=== PATIENT | female | born 1950 | race Caucasian/White ===

== ENCOUNTER 2022-11-09 19:03 | Inpatient (IN) | payer MEDICARE, OTHER ==
[~2022-11-09] VITALS: Ht 157.5 cm; Wt 41.8 kg
[2022-11-09] MEDS ORDERED: ATOR80TA PO (19:56)
[2022-11-09] MEDS ORDERED: INSU100V7 SQ (19:56)
[2022-11-09] MEDS ORDERED: ASCO-375 PO (19:56)
[2022-11-09] MEDS ORDERED: ISOS30TA9 PO (19:56)
[2022-11-09] MEDS ORDERED: MIRT-93 PO (19:56)
[2022-11-09] MEDS ORDERED: NITR0.4T SL (19:56)
[2022-11-09] MEDS ORDERED: CLOP75TA33 PO (19:56)
[2022-11-09] MEDS ORDERED: ASPI81TA31 PO (19:56)
[2022-11-09] MEDS ORDERED: LORA-258 PO (19:56)
[2022-11-09] MEDS ORDERED: CRAN450T9 PO (19:56)
[2022-11-09] MEDS ORDERED: TRAM50TA2 PO (19:56)
[2022-11-09] MEDS ORDERED: CLOP75TA15 PO (19:56)
[2022-11-09] MEDS ORDERED: SENN-261 PO (19:56)
[2022-11-09] MEDS ORDERED: EMPA25TA PO (19:56)
[2022-11-09] MEDS ORDERED: MULT-213 PO (19:56)
[2022-11-09] MEDS ORDERED: ALBU8.5H8 IH (19:56)
[2022-11-09] MEDS ORDERED: METO-356 PO (19:56)
[2022-11-09] MEDS ORDERED: MAGN400O6 PO (19:56)
[2022-11-09] MEDS ORDERED: PANT40TA49 PO (19:56)
[2022-11-09] MEDS ORDERED: FOLI1TAB94 PO (19:56)
[2022-11-09] MEDS ORDERED: FURO20TA4 PO (19:56)
[2022-11-09] MEDS ORDERED: MONT10TA33 PO (19:56)
[2022-11-09] MEDS ORDERED: FERR325T28 PO (19:56)
[2022-11-09] MEDS ORDERED: LOSA25TA27 PO (19:56)
--- NOTE | 2022-11-09 19:57 | NUR ---
Patient ambulated to the bathroom standby assist. Addendum: 11/10/22 at 0128 by SKYLAR Amendment undone in ED - 11/10/22 at 0129 by SKYLAR Patient received by Pantera WATSON and rAiel WATSON.
--- NOTE | 2022-11-09 19:58 | NUR ---
Patient had accident in bed. Voided large amount of urine. Unable to collect UA at this time.
[2022-11-09 20:15] LABS: HEMATOCRIT 32.3 % (31.2-41.9); MEAN CORPUSCULAR HEMOGLOBIN 23.8 uug (24.7-32.8); MEAN CORPUSCULAR VOLUME 77.4 fL (75.5-95.3); PLATELET COUNT (AUTO) 363 K/uL (179-408)
[2022-11-09 20:28] LABS: CARBON DIOXIDE 29 mmol/L (21-32); CHLORIDE 100 mmol/L (98-107); CREATININE 1.2 mg/dL (0.6-1.3); GLUCOSE 298 mg/dL (74-106); POTASSIUM 3.1 mmol/L (3.5-5.1); UREA NITROGEN, BLOOD 12 mg/dL (7-18)
[2022-11-09 20:34] LABS: ETHANOL < 3 MG/DL (0-0)
[2022-11-09 20:48] LABS: ALANINE AMINOTRANSFERASE 15 U/L (14-59); ALKALINE PHOSPHATASE 126 U/L (50-136); ASPARTATE AMINOTRANSFERASE 16 U/L (15-37); BILIRUBIN,DIRECT 0.1 mg/dL (0.0-0.2); BILIRUBIN,TOTAL 0.5 mg/dL (0.2-1.0); TOTAL PROTEIN, SERUM 8.5 g/dL (6.4-8.2)
[2022-11-09 20:50] LABS: ACETAMINOPHEN < 2.0 ug/mL (10-30)
[2022-11-09] MEDS ORDERED: LORAZEPAM 0.5 MG TABLET PO ONE (22:45)
[2022-11-09] MEDS ORDERED: LORAZEPAM 0.5 MG TABLET ONE (23:01)
--- NOTE | 2022-11-09 23:05 | NUR ---
Dr. Walker ordered Ativan 0.5mg for confusion.
--- NOTE | 2022-11-09 23:10 | NUR ---
Patient got up out of bed unassisted, wondering around nursing station. Patient reoriented back into bed. Patient had pulled out IV.
--- NOTE | 2022-11-09 23:15 | NUR ---
Patient taken to the bathroom. Patient dumped urine into toilet. Unable to collect UA.
--- NOTE | 2022-11-10 00:05 | NUR ---
Dr. Walker on panel call with Derrick MEZA. Pending admission.
--- NOTE | 2022-11-10 00:09 | NUR ---
Patient has been admitted to third floor TELE Room 309
--- NOTE | 2022-11-10 00:10 | NUR ---
Called third floor to give report. RN unavaliable at this time. Waiting for call back.
--- NOTE | 2022-11-10 00:11 | NUR ---
Patient sleeping, resting comfortably in bed. No signs of distress.
--- NOTE | 2022-11-10 00:15 | NUR ---
Called Wilmar Reynolds (son) to notify of patients admission. No answer, left a voicemail.
--- NOTE | 2022-11-10 00:22 | NUR ---
Replaced IV: 20g to right AC
--- NOTE | 2022-11-10 00:37 | NUR ---
Gave report to Pantera RN in third floor.
--- NOTE | 2022-11-10 01:27 | NUR ---
Patient taken to third floor room 309 via matthewriki with personal belongings. Patient in stable condition no signs of distress. Addendum: 11/10/22 at 0129 by SKYLAR Patient received by Pantera WATSON and Ariel WATSON.
[2022-11-10 01:30] VITALS: BP 145/60
[2022-11-10] MEDS ORDERED: ONDANSETRON 4 MG/2 ML VIAL IV PRN (01:30)
[2022-11-10] MEDS ORDERED: ACETAMINOPHEN 325 MG TABLET PO PRN (01:30)
[2022-11-10] MEDS ORDERED: DEXTROSE 50% 50 ML DISP.SYRIN IV PRN (01:30)
[2022-11-10] MEDS ORDERED: MAGNESIUM HYDROXIDE 30 ML LIQUID UDC PO PRN ×2 (01:30)
[2022-11-10] MEDS ORDERED: REMEDY ESSENTIAL ZINC PASTE 113 GM TP PRN (01:30)
--- NOTE | 2022-11-10 01:30 | NUR ---
resident admitted from er in stable condition. no sob or resp distress noted. patient is ambulatory, moved to bed and made her comfortable. all needs met and attended. patient speaks hungarian. son Wilmar called and udated about diet order and was appriciative for care provided to her mother. per son will visit in am. v/s wnl. call light in reach and functional.
[2022-11-10 04:00] VITALS: BP 120/78
[2022-11-10] MEDS: BLOOD SUGAR DIAGNOSTIC 1 EACH STRIP VI SCH ×4 (06:35→20:22)
[2022-11-10 06:55] LABS: HEMATOCRIT 31.4 % (31.2-41.9); MEAN CORPUSCULAR HEMOGLOBIN 23.5 uug (24.7-32.8); MEAN CORPUSCULAR VOLUME 77.5 fL (75.5-95.3); PLATELET COUNT (AUTO) 283 K/uL (179-408)
[2022-11-10 07:21] LABS: CREATININE 0.9 mg/dL (0.6-1.3); MAGNESIUM 2.1 mg/dL (1.8-2.4); PHOSPHOROUS 4.4 mg/dL (2.5-4.9); POTASSIUM 2.9 mmol/L (3.5-5.1); THYROID STIMULATING HORMONE 0.871 mIU/mL (0.358-3.740)
[2022-11-10] MEDS: INSULIN REGULAR, HUMAN 300 UNIT/3 ML VIAL SQ PRN ×4 (08:00→20:16)
[2022-11-10] MEDS: MULTIVITAMINS,THERAPEUTIC TABLET PO SCH (08:45)
[2022-11-10] MEDS: METOPROLOL SUCCINATE XL 25 MG TAB.SR.24H PO SCH ×2 (08:46→20:22)
[2022-11-10] MEDS: ASCORBIC ACID 500 MG TABLET PO SCH (08:47)
[2022-11-10] MEDS: FERROUS SULFATE 325 MG TABEC PO SCH (08:47)
[2022-11-10] MEDS: FUROSEMIDE 20 MG TABLET PO SCH (08:47)
[2022-11-10] MEDS: ASPIRIN 81 MG TAB.CHEW PO SCH (08:47)
[2022-11-10] MEDS: ISOSORBIDE DINITRATE 10 MG TABLET PO SCH (08:47)
[2022-11-10] MEDS: LOSARTAN POTASSIUM 25 MG TABLET PO SCH (08:47)
[2022-11-10] MEDS: FOLIC ACID 1 MG TABLET PO SCH (08:47)
[2022-11-10] MEDS ORDERED: Medication Not On Formulary EA (Cranberry Fruit (Cranberry) 450 MG) PO SCH (09:00)
--- NOTE | 2022-11-10 09:27 | NUR ---
PATIENT SEEN BY THE PHYSICAL THERAPY REQUIRING MAX ASSIST ENDURANCE WAS POOR AT THIS TIME
[2022-11-10] MEDS: CLOPIDOGREL 75 MG TABLET PO SCH (09:51)
--- NOTE | 2022-11-10 09:52 | NUR ---
Rcvd pt. in bed sleeping with bilateral wrist soft restraint. Skin inspected to check for circulation. Pt. stable no SOB at this time. Pt. in NSR in tele.
[2022-11-10] MEDS ORDERED: POTASSIUM CHLORIDE 20 MEQ TAB.PRT.SR PO ONE ×2 (11:00→13:00)
[2022-11-10 12:00] VITALS: BP 83/37
--- NOTE | 2022-11-10 12:20 | NUR ---
PATIENTS BLOOD PRESSURE AT THIS TIME IS 83/41 CHECKED A FEW TIMES TO ENSURE ACCURACY PATINES LEGS UP AND HEAD DOWN FOR A WHILE SHE IS ASSYMPTOMATIC REMAINS CONFUSED BUT AWAKE CALLED DR HOOVER AND NOTIFIED HIM ABOUT THE BLOOD PRESSURE AND ALSO THAT PATIENTS SON WAS HERE AND WANTED DR RIOS TO CALL HIM HIS MOTHER CONTINUES TO COMPLAIN OF PAIN IN THE BACK OF HER HEAD AND GETTING MORE CONFUSED.LEFT HIM A MESSAGE.
--- NOTE | 2022-11-10 12:45 | NUR ---
DR RIOS HERE AND SEEN PATIENT WITH NO NEW ORDERS AT THIS TIME.PATIENT IS RESTING IN BED EATING HER DINNER BEING FED BY HER ASSIGNED SUPERVISOR OF COMMUNICATIONS AT THIS TIME.
--- NOTE | 2022-11-10 13:30 | NUR ---
NEW ORDER FOR MRI OF THE BRAIN RECEIVED FROM DR CORTES SO I CALLED THE DOCTOR AND INFORMED HIM THAT PATIENT IS VERY CONFUSED AGITATED ON RESTRAINTS FOR SAFETY AND HE STATED THAT HE WILL BE HERE SOON.
[2022-11-10 16:00] VITALS: BP 94/45
--- NOTE | 2022-11-10 16:31 | NUR ---
DR CORTES HERE SEEN PATIENT SPOKE WITH PATIENTS SON PEEP AND EXPLAINED TO HIM THE PLAN OF CARE WITH NEW ORDERS AND NOTED.
--- NOTE | 2022-11-10 18:11 | NUR ---
Unable to complete CT C-spine due to patient condition. Patient is yelling in a different language and swinging hands. Not able to aquire C spine
--- NOTE | 2022-11-10 18:29 | NUR ---
PATIENT PICKED UP BY BED TO RADIOLOGY DEPT FOR CT CERVICAL SPINE ORDERED.
--- NOTE | 2022-11-10 18:54 | NUR ---
PATIENT STRAIGHT CATH FOR URINE ORDERED VERY AGGRESSIVE KICKING GRABBING DESPITE TARIK WRIST RESTRAINTS VERY CONFUSED YELLING AND VERY COMBATIVE REQUIRED 3 PEOPLE TO BE ABLE TO CATH HER.
[2022-11-10 19:49] LABS: *BILIRUBIN,URIN NEGATIVE (NEGATIVE); *BLOOD, URINE NEGATIVE (NEGATIVE); *CLARITY,URINE CLEAR (CLEAR); *COLOR,URINE YELLOW (YELLOW); *KETONES,URINE NEGATIVE (NEGATIVE); *UROBILINOGEN,URINE 0.2 E.U./dl (NORMAL); LEUKOCYTE ESTERASE ,URINE NEGATIVE (NEGATIVE); NITRITE, URINE NEGATIVE (NEGATIVE); PH,URINE 5.5 (5.0-8.0)
[2022-11-10 19:50] LABS: UGLUCOSE 2+ (NEGATIVE)
[2022-11-10 20:00] VITALS: BP 122/65
[2022-11-10] MEDS: MONTELUKAST SODIUM 10 MG TABLET PO SCH (20:16)
[2022-11-10] MEDS: ZOLPIDEM 5 MG TABLET PO PRN (20:17)
[2022-11-10] MEDS: NORTRIPTYLINE HCL 10 MG CAPSULE PO SCH (20:27)
[2022-11-10] MEDS ORDERED: MIRTAZAPINE 15 MG TABLET PO SCH (21:00)
[2022-11-10 23:34] VITALS: BP 125/60
[2022-11-11 03:58] VITALS: BP 132/61
[2022-11-11] MEDS: BLOOD SUGAR DIAGNOSTIC 1 EACH STRIP VI SCH ×4 (06:29→21:15)
[2022-11-11 07:29] LABS: HEMATOCRIT 30.2 % (31.2-41.9); MEAN CORPUSCULAR HEMOGLOBIN 23.9 uug (24.7-32.8); MEAN CORPUSCULAR VOLUME 78.1 fL (75.5-95.3); PLATELET COUNT (AUTO) 296 K/uL (179-408)
[2022-11-11 07:56] LABS: MAGNESIUM 2.2 mg/dL (1.8-2.4); PHOSPHOROUS 4.2 mg/dL (2.5-4.9); POTASSIUM 4.2 mmol/L (3.5-5.1)
--- NOTE | 2022-11-11 08:00 | NUR ---
PATIENT REFUSED 0800 VITALS SIGNS WAS AGITATED.
[2022-11-11] MEDS: ISOSORBIDE DINITRATE 10 MG TABLET PO SCH (09:38)
[2022-11-11] MEDS: ASPIRIN 81 MG TAB.CHEW PO SCH (09:39)
[2022-11-11] MEDS: METOPROLOL SUCCINATE XL 25 MG TAB.SR.24H PO SCH ×2 (09:39→20:52)
[2022-11-11] MEDS: MULTIVITAMINS,THERAPEUTIC TABLET PO SCH (09:39)
[2022-11-11] MEDS: LOSARTAN POTASSIUM 25 MG TABLET PO SCH (09:40)
[2022-11-11] MEDS: FOLIC ACID 1 MG TABLET PO SCH (09:40)
[2022-11-11] MEDS: FERROUS SULFATE 325 MG TABEC PO SCH (09:40)
[2022-11-11] MEDS: ASCORBIC ACID 500 MG TABLET PO SCH (09:41)
[2022-11-11] MEDS: CLOPIDOGREL 75 MG TABLET PO SCH (09:41)
[2022-11-11] MEDS: FUROSEMIDE 20 MG TABLET PO SCH (09:42)
[2022-11-11 12:00] VITALS: BP 96/44
[2022-11-11] MEDS ORDERED: LORAZEPAM 2 MG/1 ML VIAL IV ONE (13:30)
--- NOTE | 2022-11-11 13:40 | NUR ---
AMBULANCE CAME TO TAKE PATIENT TO MRI BUT PATIENT HAD SOIL DIAPER PT VERY COMBATIVE CALLED DR RIOS HE ORDERED ATIVAN 1 MG X 1 DOSE HAD TO GET THREE PEOPLE TO ASSIST AND GAVE ATIVAN 1 MG IVP PT CALM CLEANED APPLIED NEW GOWN ALONG DIAPER. PATIENT TAKEN TO MRI AT [facility].
--- NOTE | 2022-11-11 14:58 | NUR ---
UNABLE TO DO MRI BRAIN VERY UNSTABLE , MOVING AROUND , CHARGE NURSE NOTIFIED PER SECTION LEADER SCREEN PRINTING MY.
--- NOTE | 2022-11-11 15:30 | NUR ---
PATIENT CAME BACK FROM MRI WASN'T ABLE TO COMPLETE IT BECAUSE BECAME RESTLESS AND ONCE ABLE TO CALM PT SHE HEARD THE NOISE WOKE UP WILL ENDORSE TO . PT NOW SITTING IN [facility] CALM NO SIGNS OF DISTRESS NOTED. ATTEMPED TO PUT MONITOR ON BUT PT BECAME AGGRESSIVE WILL ENDORSE TO NURSE. Addendum: 11/11/22 at 1552 by REGISTRY [facility] INPATIENT RN4 RN PT IS CLOSE BY NURSES STATION MONITORING PATIENT EVERY HOUR.
[2022-11-11 16:00] VITALS: BP 131/68
[2022-11-11] MEDS: HYDROCODONE/APAP 5-325MG TABLET PO PRN (19:10)
[2022-11-11] MEDS: INSULIN REGULAR, HUMAN 300 UNIT/3 ML VIAL SQ PRN ×2 (19:19→21:20)
--- NOTE | 2022-11-11 19:45 | NUR ---
Received Pt from Day shift. Pt is A&Ox1 and seems agitated at staff. Pt in restraints and in gerichair. Pt on Rm Air. SR-ST on tele. Safety measures in place. Will continue to monitor.
[2022-11-11 20:00] VITALS: BP 125/75
[2022-11-11] MEDS: NORTRIPTYLINE HCL 10 MG CAPSULE PO SCH (20:51)
[2022-11-11] MEDS: MONTELUKAST SODIUM 10 MG TABLET PO SCH (20:51)
[2022-11-12] VITALS: BP 111/59
[2022-11-12] MEDS: ZOLPIDEM 5 MG TABLET PO PRN ×2 (01:12→21:41)
[2022-11-12 03:49] VITALS: BP 125/47
[2022-11-12] MEDS: BLOOD SUGAR DIAGNOSTIC 1 EACH STRIP VI SCH ×4 (07:01→21:58)
--- NOTE | 2022-11-12 07:04 | NUR ---
End of shift Note: Pt is A&Ox1 and seems agitated at staff. Pt in restraints and in gerichair. Pt on Rm Air. SR-ST on tele. Safety measures in place. Will continue to monitor.
[2022-11-12 07:33] LABS: MEAN CORPUSCULAR HEMOGLOBIN 23.6 uug (24.7-32.8); MEAN CORPUSCULAR VOLUME 77.3 fL (75.5-95.3); PLATELET COUNT (AUTO) 311 K/uL (179-408)
[2022-11-12 07:46] LABS: MAGNESIUM 2.2 mg/dL (1.8-2.4); PHOSPHOROUS 4.3 mg/dL (2.5-4.9); POTASSIUM 3.5 mmol/L (3.5-5.1)
[2022-11-12] MEDS: LOSARTAN POTASSIUM 25 MG TABLET PO SCH (09:58)
[2022-11-12] MEDS: ASPIRIN 81 MG TAB.CHEW PO SCH (09:58)
[2022-11-12] MEDS: METOPROLOL SUCCINATE XL 25 MG TAB.SR.24H PO SCH ×2 (09:59→21:40)
[2022-11-12] MEDS: FERROUS SULFATE 325 MG TABEC PO SCH (09:59)
[2022-11-12] MEDS: FOLIC ACID 1 MG TABLET PO SCH (09:59)
[2022-11-12] MEDS: CLOPIDOGREL 75 MG TABLET PO SCH (10:00)
[2022-11-12] MEDS: MULTIVITAMINS,THERAPEUTIC TABLET PO SCH (10:00)
[2022-11-12] MEDS: ASCORBIC ACID 500 MG TABLET PO SCH (10:00)
[2022-11-12] MEDS: FUROSEMIDE 20 MG TABLET PO SCH (11:35)
[2022-11-12] MEDS: ISOSORBIDE DINITRATE 10 MG TABLET PO SCH (11:35)
[2022-11-12 12:00] VITALS: BP 98/47
[2022-11-12] MEDS: INSULIN REGULAR, HUMAN 300 UNIT/3 ML VIAL SQ PRN ×3 (12:13→21:59)
[2022-11-12 15:52] VITALS: BP 142/71
[2022-11-12 16:32] LABS: EOSINOPHILS % (MANUAL) 2 % (0-8); LYMPHOCYTES % (MANUAL) 7 % (20-40); MONOCYTES % (MANUAL) 4 % (2-10); NEUTROPHILS % (MANUAL) 87 % (42-75)
--- NOTE | 2022-11-12 17:24 | NUR ---
Tele monitor leads on several occasion reapplied by staff but patient constantly manage to remove her hands mittens, IV line and Tele monitor. Patient remains with heart rates from 100-115. At this time Dr Posada made aware okay order for bilateral wrist restraints for patient safety.
[2022-11-12] MEDS: VANCOMYCIN FOR PO/GT/NG USE PO SCH ×2 (17:56→23:13)
--- NOTE | 2022-11-12 18:39 | NUR ---
Spoke with patient's son Wilmar about doctor Posada orders which require sign consent from son due to patient cognitive status. Mr Wilmar requests for Dr Posada to explain all diagnostic tests ordered including MRI that Dr Posada previously mentioned to him that was not part of the new orders.
[2022-11-12] MEDS: NORTRIPTYLINE HCL 10 MG CAPSULE PO SCH (21:40)
[2022-11-12] MEDS: MONTELUKAST SODIUM 10 MG TABLET PO SCH (21:40)
--- NOTE | 2022-11-12 23:00 | NUR ---
Pt has shellfish allergy and informed Dr Posada regarding CTA chest with contrast; Dr Posada changed order to CT Chest without contrast ; pt went for CT and back to room.
[2022-11-13 00:26] LABS: *BILIRUBIN,URIN NEGATIVE (NEGATIVE); *BLOOD, URINE NEGATIVE (NEGATIVE); *CLARITY,URINE SLIGHTLY CLOUDY (CLEAR); *COLOR,URINE YELLOW (YELLOW); *KETONES,URINE NEGATIVE (NEGATIVE); *UROBILINOGEN,URINE 0.2 E.U./dl (NORMAL); LEUKOCYTE ESTERASE ,URINE 1+ (NEGATIVE); NITRITE, URINE POSITIVE (NEGATIVE); UGLUCOSE NEGATIVE (NEGATIVE)
[2022-11-13 01:10] LABS: RBC,URINE NONE SEEN /HPF (0-3)
[2022-11-13 01:11] LABS: BACTERIA,URINE MANY /HPF (NONE SEEN); SQUAMOUS EPITHELIAL CELL,UR FEW /HPF (NONE SEEN)
[2022-11-13] MEDS: VANCOMYCIN FOR PO/GT/NG USE PO SCH ×3 (06:46→17:08)
[2022-11-13] MEDS: BLOOD SUGAR DIAGNOSTIC 1 EACH STRIP VI SCH ×4 (06:47→21:33)
[2022-11-13 06:54] LABS: HEMATOCRIT 29.5 % (31.2-41.9); MEAN CORPUSCULAR VOLUME 77.7 fL (75.5-95.3); PLATELET COUNT (AUTO) 272 K/uL (179-408)
[2022-11-13 07:23] LABS: CREATININE 1.1 mg/dL (0.6-1.3); MAGNESIUM 2.3 mg/dL (1.8-2.4); PHOSPHOROUS 4.3 mg/dL (2.5-4.9); POTASSIUM 3.6 mmol/L (3.5-5.1)
[2022-11-13] MEDS: INSULIN REGULAR, HUMAN 300 UNIT/3 ML VIAL SQ PRN ×2 (07:57→12:45)
--- NOTE | 2022-11-13 08:00 | NUR ---
Report received from Day shift RN. PT Awake alert and confused. PT very combative. Pt ambulates all around would not sit down. Pt does not listen and patient is able to come out of restraints. Pt has no IV access. No signs of shortness of breath noted. No complaint of pain. Vital signs stable. No acute distress noted.
[2022-11-13 08:41] VITALS: BP 141/63
[2022-11-13] MEDS: ASPIRIN 81 MG TAB.CHEW PO SCH (09:32)
[2022-11-13] MEDS: FERROUS SULFATE 325 MG TABEC PO SCH (09:32)
[2022-11-13] MEDS: FOLIC ACID 1 MG TABLET PO SCH (09:32)
[2022-11-13] MEDS: ASCORBIC ACID 500 MG TABLET PO SCH (09:33)
[2022-11-13] MEDS: CLOPIDOGREL 75 MG TABLET PO SCH (09:33)
[2022-11-13] MEDS: MULTIVITAMINS,THERAPEUTIC TABLET PO SCH (09:33)
[2022-11-13] MEDS: METOPROLOL SUCCINATE XL 25 MG TAB.SR.24H PO SCH ×2 (09:33→22:01)
--- NOTE | 2022-11-13 09:47 | NUR ---
Called pharmacy for Isordil, will give when it is delivered.
[2022-11-13] MEDS: ISOSORBIDE DINITRATE 10 MG TABLET PO SCH (09:54)
--- NOTE | 2022-11-13 11:14 | NUR ---
POSITIVE FOR C-DIFF: Jennifer Bailey from [facility] called to inform us that this pt is positive for C. Diff. Notified all staff on floor, put up an isolation sign and closed the door. Spoke to Phyllis on 3rd floor who said she will order the isolation cart to be delivered. Addendum: 11/13/22 at 1139 by LATHA PRIEST RN Dr Albino nash at 11:21am. All common surfaces wiped down with bleach/orange top wipes.
[2022-11-13 12:00] VITALS: BP 108/60
--- NOTE | 2022-11-13 12:00 | NUR ---
Pt reassessed. Patient pull out of restraint. meds given. patient still remain agitated and angry. MD aware. IV inserted patient pull out IV. Patient continue to be agitated and confused. Will continue to monitor.
[2022-11-13] MEDS: MEROPENEM 1 G in IV NORMAL SALINE 100 ML IV SCH (13:31)
[2022-11-13 16:15] VITALS: BP 134/68
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
[2022-11-13] MEDS ORDERED: LORAZEPAM 2 MG/1 ML VIAL IV PRN (19:00)
[2022-11-13] MEDS ORDERED: OLANZAPINE 10 MG VIAL IM ONE (20:15)
[2022-11-13] MEDS: NORTRIPTYLINE HCL 10 MG CAPSULE PO SCH (21:52)
[2022-11-13] MEDS: MONTELUKAST SODIUM 10 MG TABLET PO SCH (21:57)
--- NOTE | 2022-11-14 | NUR ---
Pt refused Insulin
[2022-11-14] MEDS: VANCOMYCIN FOR PO/GT/NG USE PO SCH ×5 (00:46→23:55)
[2022-11-14] MEDS: MEROPENEM 1 G in IV NORMAL SALINE 100 ML IV SCH ×2 (01:31→12:07)
--- NOTE | 2022-11-14 04:00 | NUR ---
Pt reassessed. Pt asleep. No signs of shortness of breath. restrain intact and patent. Will continue to monitor.
[2022-11-14] MEDS: BLOOD SUGAR DIAGNOSTIC 1 EACH STRIP VI SCH ×3 (07:30→15:50)
--- NOTE | 2022-11-14 07:30 | NUR ---
Pt refused insulin
--- NOTE | 2022-11-14 07:30 | NUR ---
Pt reassessed. Pt awake pulled out IV and monitor. Blood all over floor. Pt is being very combative and yelling. Bath and AM care given. No signs of shortness of breath or acute distress noted. Nursing and drying supervisor cooking casing visited. Pt transfer to room 317. Report given to receiving nurse judy. Pt in stable condition.
--- NOTE | 2022-11-14 09:00 | NUR ---
Received the pt. from the second floor and report received by Janneth. Pt. is alert and oriented x2. Not able to speak Kyrgyz. Ambulatory. Removes Iv lines. Noted episodes of agitation and aggression. Pt. has order for restrain but removes it easy. No s/s pain noted. Will keep monitoring the patient.
[2022-11-14] MEDS: FERROUS SULFATE 325 MG TABEC PO SCH (09:45)
[2022-11-14] MEDS: FOLIC ACID 1 MG TABLET PO SCH (09:45)
[2022-11-14] MEDS: ASCORBIC ACID 500 MG TABLET PO SCH (09:46)
[2022-11-14] MEDS: MULTIVITAMINS,THERAPEUTIC TABLET PO SCH (09:46)
[2022-11-14] MEDS: ASPIRIN 81 MG TAB.CHEW PO SCH (09:46)
[2022-11-14] MEDS: ISOSORBIDE DINITRATE 10 MG TABLET PO SCH (09:46)
[2022-11-14] MEDS: METOPROLOL SUCCINATE XL 25 MG TAB.SR.24H PO SCH ×2 (09:50→21:03)
[2022-11-14] MEDS: CLOPIDOGREL 75 MG TABLET PO SCH (09:57)
[2022-11-14] MEDS: INSULIN REGULAR, HUMAN 300 UNIT/3 ML VIAL SQ PRN (11:49)
[2022-11-14 12:00] VITALS: BP 108/57
[2022-11-14] MEDS: OLANZAPINE 10 MG VIAL IM PRN (16:09)
[2022-11-14 16:41] VITALS: BP 102/62
[2022-11-14 20:00] VITALS: BP 132/60
[2022-11-14] MEDS: NORTRIPTYLINE HCL 10 MG CAPSULE PO SCH (21:02)
[2022-11-14] MEDS: MONTELUKAST SODIUM 10 MG TABLET PO SCH (21:02)
[2022-11-14] MEDS: HYDROCODONE/APAP 5-325MG TABLET PO PRN (21:02)
[2022-11-15] MEDS: MEROPENEM 1 G in IV NORMAL SALINE 100 ML IV SCH ×2 (00:14→13:57)
[2022-11-15 04:00] VITALS: BP 143/77
[2022-11-15] MEDS: VANCOMYCIN FOR PO/GT/NG USE PO SCH ×3 (05:58→16:57)
[2022-11-15 07:55] LABS: HEMATOCRIT 26.8 % (31.2-41.9); MEAN CORPUSCULAR HEMOGLOBIN 23.9 uug (24.7-32.8); MEAN CORPUSCULAR VOLUME 77.9 fL (75.5-95.3); PLATELET COUNT (AUTO) 256 K/uL (179-408)
--- NOTE | 2022-11-15 08:00 | NUR ---
Pt on corona wrist restraint. Attempting to give food to pt but pt was spitting her food out. Unable to put kci bed as pt gets oob all the time. Frequent turning implemented. Pt Hitting hand baseball sewer when being fed. Circulation check done on wrist and skin intact with good cap refill of less than 2 secs.
[2022-11-15 08:18] LABS: BILIRUBIN,TOTAL 0.4 mg/dL (0.2-1.0); MAGNESIUM 2.2 mg/dL (1.8-2.4); PHOSPHOROUS 3.9 mg/dL (2.5-4.9); POTASSIUM 3.4 mmol/L (3.5-5.1); TOTAL PROTEIN, SERUM 6.5 g/dL (6.4-8.2)
[2022-11-15] MEDS: FERROUS SULFATE 325 MG TABEC PO SCH (08:38)
[2022-11-15] MEDS: ASPIRIN 81 MG TAB.CHEW PO SCH (08:38)
[2022-11-15] MEDS: FOLIC ACID 1 MG TABLET PO SCH (08:38)
[2022-11-15] MEDS: METOPROLOL SUCCINATE XL 25 MG TAB.SR.24H PO SCH ×2 (08:39→21:53)
[2022-11-15] MEDS: CLOPIDOGREL 75 MG TABLET PO SCH (08:39)
[2022-11-15] MEDS: MULTIVITAMINS,THERAPEUTIC TABLET PO SCH (08:39)
[2022-11-15] MEDS: ASCORBIC ACID 500 MG TABLET PO SCH (08:40)
[2022-11-15] MEDS: ISOSORBIDE DINITRATE 10 MG TABLET PO SCH (08:40)
[2022-11-15] MEDS ORDERED: POTASSIUM CHLORIDE 20 MEQ TAB.PRT.SR PO ONE (10:30)
[2022-11-15 11:48] VITALS: BP 94/50
--- NOTE | 2022-11-15 14:00 | NUR ---
Unable to follow request of family regarding giving her tea with milk as pt is non cooperative and spitting her food out. Pt very forgetful.
[2022-11-15 16:00] VITALS: BP 122/71
--- NOTE | 2022-11-15 18:15 | NUR ---
Pt had large diarrhea today x 1 walked pt to bathroom. Pt more cooperative on taking her food.
[2022-11-15 20:00] VITALS: BP 136/65
[2022-11-15] MEDS: NORTRIPTYLINE HCL 10 MG CAPSULE PO SCH (21:52)
[2022-11-15] MEDS: MONTELUKAST SODIUM 10 MG TABLET PO SCH (21:52)
[2022-11-15] MEDS: ZOLPIDEM 5 MG TABLET PO PRN (21:53)
[2022-11-16] MEDS: VANCOMYCIN FOR PO/GT/NG USE PO SCH ×5 (00:14→23:21)
[2022-11-16] MEDS: MEROPENEM 1 G in IV NORMAL SALINE 100 ML IV SCH ×2 (01:24→18:12)
--- NOTE | 2022-11-16 01:53 | NUR ---
Patient in no acute distress. Patient is alert and confused. Bilateral soft wrist restraints in use for patients safety. Telemetry discontinued as ordered. Will continue to monitor.
[2022-11-16 04:00] VITALS: BP 145/78
[2022-11-16 07:32] LABS: CREATININE 0.8 mg/dL (0.6-1.3); POTASSIUM 3.8 mmol/L (3.5-5.1)
[2022-11-16 07:49] VITALS: BP 153/80
[2022-11-16] MEDS: METOPROLOL SUCCINATE XL 25 MG TAB.SR.24H PO SCH ×2 (09:51→21:32)
[2022-11-16] MEDS: MULTIVITAMINS,THERAPEUTIC TABLET PO SCH (09:51)
[2022-11-16] MEDS: FERROUS SULFATE 325 MG TABEC PO SCH (09:51)
[2022-11-16] MEDS: CLOPIDOGREL 75 MG TABLET PO SCH (09:51)
[2022-11-16] MEDS: ASPIRIN 81 MG TAB.CHEW PO SCH (09:52)
[2022-11-16] MEDS: ISOSORBIDE DINITRATE 10 MG TABLET PO SCH (09:52)
[2022-11-16] MEDS: FOLIC ACID 1 MG TABLET PO SCH (09:52)
[2022-11-16] MEDS: ASCORBIC ACID 500 MG TABLET PO SCH (10:44)
[2022-11-16 11:33] VITALS: BP 114/62
[2022-11-16] MEDS ORDERED: OLANZAPINE 10 MG VIAL IM ONE (14:45)
[2022-11-16] MEDS: OLANZAPINE 10 MG VIAL IM PRN (15:52)
[2022-11-16 16:00] VITALS: BP 135/52
--- NOTE | 2022-11-16 18:50 | NUR ---
Pt. in bilateral soft wrist restraint. Released and checked circulation every 2 hours. Zypreza 0.125ml q8 PRN given for psychosis. Pt. tolerated it well. Pt stable and comfortable at this time. Midline left upper arm #18 patent running ATB (Interventional Spine) at a rate 33.33 cc/hr.
--- NOTE | 2022-11-16 19:40 | NUR ---
Received Pt from Day shift. Pt is A&Ox2 and is agitated at staff. Pt in soft restraints on bed. Pt on Rm Air. C-diff precautions. Safety measures in place. Will continue to monitor.
[2022-11-16 20:00] VITALS: BP 138/81
[2022-11-16] MEDS: MONTELUKAST SODIUM 10 MG TABLET PO SCH (21:32)
[2022-11-16] MEDS: NORTRIPTYLINE HCL 10 MG CAPSULE PO SCH (21:32)
[2022-11-16] MEDS: ZOLPIDEM 5 MG TABLET PO PRN (23:21)
[2022-11-17] MEDS: OLANZAPINE 10 MG VIAL IM PRN (03:22)
--- NOTE | 2022-11-17 03:23 | NUR ---
Administered 1.25mg Zyprexa IM. Safety measures in place. Will continue to monitor.
[2022-11-17 04:00] VITALS: BP 171/76
[2022-11-17] MEDS ORDERED: CLONIDINE HCL 0.1 MG TABLET PO ONE (05:15)
[2022-11-17] MEDS: MEROPENEM 1 G in IV NORMAL SALINE 100 ML IV SCH ×2 (05:27→17:14)
[2022-11-17] MEDS: VANCOMYCIN FOR PO/GT/NG USE PO SCH ×4 (05:27→23:19)
--- NOTE | 2022-11-17 06:28 | NUR ---
End of Shift Note: Pt is A&Ox1-2 and is agitated at staff. Pt in soft restraints on bed. Pt on Rm Air. C-diff precautions. Safety measures in place. Will continue to monitor.
[2022-11-17 06:48] LABS: HEMATOCRIT 29.6 % (31.2-41.9); MEAN CORPUSCULAR VOLUME 77.7 fL (75.5-95.3); PLATELET COUNT (AUTO) 297 K/uL (179-408)
--- NOTE | 2022-11-17 06:51 | NUR ---
During 0400 Vitals, Pt's BP was 171/76. Administered Clonidine 0.1 mg one time dose at 0518. Pt's BP is now 134/75. Safety measures in place. Will continue to monitor.
[2022-11-17 07:24] LABS: CREATININE 0.7 mg/dL (0.6-1.3); MAGNESIUM 2.1 mg/dL (1.8-2.4); PHOSPHOROUS 3.5 mg/dL (2.5-4.9); POTASSIUM 3.5 mmol/L (3.5-5.1)
[2022-11-17] MEDS ORDERED: CLONIDINE HCL 0.1 MG TABLET PO PRN (08:00)
[2022-11-17] MEDS: ASPIRIN 81 MG TAB.CHEW PO SCH (09:21)
[2022-11-17] MEDS: FERROUS SULFATE 325 MG TABEC PO SCH (09:21)
[2022-11-17] MEDS: FOLIC ACID 1 MG TABLET PO SCH (09:22)
[2022-11-17] MEDS: CLOPIDOGREL 75 MG TABLET PO SCH (09:22)
[2022-11-17] MEDS: ASCORBIC ACID 500 MG TABLET PO SCH (09:22)
[2022-11-17] MEDS: METOPROLOL SUCCINATE XL 25 MG TAB.SR.24H PO SCH ×2 (09:25→21:06)
[2022-11-17] MEDS: ISOSORBIDE DINITRATE 10 MG TABLET PO SCH (09:26)
[2022-11-17] MEDS ORDERED: OLANZAPINE 10 MG VIAL IM ONE (11:36)
--- NOTE | 2022-11-17 12:00 | NUR ---
Pt. picked up By EMT for Mri without contrast. Zypreza IM given as ordered. BP was 95/46. MD made aware and he said pt has to go for MRI. Pt left with one-on-one nurse. Pt. stable. Full report gIVEN to EMT.
[2022-11-17] MEDS: MULTIVITAMINS,THERAPEUTIC TABLET PO SCH (13:25)
--- NOTE | 2022-11-17 15:43 | NUR ---
Pt came back from MRI. No report of agitation and psychosis during the test. Vitals sign WNL. BP 110/67, HR 61, RR 21, O2 SAT 95%ra, and temp. 97.4. Pt still on one-on-one. Will continue to monitor.
[2022-11-17 20:00] VITALS: BP 141/83
[2022-11-17] MEDS: NORTRIPTYLINE HCL 10 MG CAPSULE PO SCH (21:06)
[2022-11-17] MEDS: MONTELUKAST SODIUM 10 MG TABLET PO SCH (21:06)
[2022-11-17] MEDS: ZOLPIDEM 5 MG TABLET PO PRN ×2 (21:16→22:30)
[2022-11-18 04:00] VITALS: BP 125/62
[2022-11-18] MEDS: MEROPENEM 1 G in IV NORMAL SALINE 100 ML IV SCH ×2 (05:16→17:08)
[2022-11-18] MEDS: VANCOMYCIN FOR PO/GT/NG USE PO SCH ×4 (05:17→23:29)
[2022-11-18 09:00] VITALS: BP 117/65
[2022-11-18] MEDS ORDERED: VANC500V PO (10:05)
[2022-11-18] MEDS ORDERED: LEVO500T90 PO (10:05)
[2022-11-18] MEDS: ASCORBIC ACID 500 MG TABLET PO SCH (10:14)
[2022-11-18] MEDS: ASPIRIN 81 MG TAB.CHEW PO SCH (10:14)
[2022-11-18] MEDS: FOLIC ACID 1 MG TABLET PO SCH (10:14)
[2022-11-18] MEDS: CLOPIDOGREL 75 MG TABLET PO SCH (10:14)
[2022-11-18] MEDS: MULTIVITAMINS,THERAPEUTIC TABLET PO SCH (10:16)
[2022-11-18] MEDS: METOPROLOL SUCCINATE XL 25 MG TAB.SR.24H PO SCH ×2 (10:16→21:04)
[2022-11-18] MEDS: FERROUS SULFATE 325 MG TABEC PO SCH (10:16)
[2022-11-18] MEDS: ISOSORBIDE DINITRATE 10 MG TABLET PO SCH (10:17)
[2022-11-18 12:00] VITALS: BP 101/49
[2022-11-18] MEDS: OLANZAPINE 10 MG VIAL IM PRN (12:14)
[2022-11-18 16:28] VITALS: BP 118/54
--- NOTE | 2022-11-18 19:39 | NUR ---
RECEIVED REPORT FROM NOC SHIFT RN. PATIENT IS ALERT & ORIENTED X1, AND UNABLE TO SPEAK TAJIK. VITAL SIGNS STABLE. PATIENT VOIDS ADEQUATELY. PATIENT TOLERATES PO AND IV MEDICATIONS AND DIET WELL. PATIENT DENIES PAIN. PATIENT CONTINUES TO BE A RISK FOR INJURY TO HERSELF. PATIENT PULLS AT IV LINES, YELLS, SCREAMS, AND CONTINUES TO TRY TO GET TO BED. VISUAL CHECKS PER PROTOCOL. PATIENT'S SON, ALFIE, CALLS FOR UPDATE. RN UPDATES SON REGARDING HER CARE. PER VETERANS' COORDINATOR, WINSTON, PATIENT IS UNABLE TO BE DISCHARGE BACK TO SNF SNF REQUESTED "STOOL COLORIZATION" AND PSYCH CONSULT BE DONE FOR THE PATIENT. RN ACKNOWLEDGED MESSAGE. FALL PRECAUTIONS OBSERVED. NO ACUTE DISTRESS. ALL NEEDS MET AT THIS TIME. ENDORSED CARE TO SHIRLEY CATHERINE, FOR CONTINUATION OF CARE.
[2022-11-18 20:00] VITALS: BP 115/75
[2022-11-18] MEDS: NORTRIPTYLINE HCL 10 MG CAPSULE PO SCH (21:03)
[2022-11-18] MEDS: MONTELUKAST SODIUM 10 MG TABLET PO SCH (21:03)
[2022-11-18] MEDS: ZOLPIDEM 5 MG TABLET PO PRN (21:03)
[2022-11-19] MEDS: HYDROCODONE/APAP 5-325MG TABLET PO PRN (00:53)
[2022-11-19 04:00] VITALS: BP 125/66
--- NOTE | 2022-11-19 04:48 | NUR ---
Patient in no acute distress. Bilateral soft wrist restraints intact for patients safety. Left upper arm Midline intact. Patient irritable and combative when awake. Patient sleeping at present. Will continue to monitor.
[2022-11-19] MEDS: MEROPENEM 1 G in IV NORMAL SALINE 100 ML IV SCH (06:17)
[2022-11-19] MEDS: VANCOMYCIN FOR PO/GT/NG USE PO SCH ×3 (06:17→17:06)
--- NOTE | 2022-11-19 08:30 | NUR ---
patient is in bed, alert to self, no sob, respirations are even nonlabored, skin warm and dry to touch. restrains released, skin check performed to both wrists and both hands,capillary refill less than 3 second, no skin issues noted, supervised patient to toileting, ambulating with contact guard, has formed BM, offered water and breakfast.
[2022-11-19] MEDS: OLANZAPINE 10 MG VIAL IM PRN (08:42)
[2022-11-19] MEDS: CLOPIDOGREL 75 MG TABLET PO SCH (09:45)
[2022-11-19] MEDS: ASCORBIC ACID 500 MG TABLET PO SCH (09:45)
[2022-11-19] MEDS: ASPIRIN 81 MG TAB.CHEW PO SCH (09:45)
[2022-11-19] MEDS: MULTIVITAMINS,THERAPEUTIC TABLET PO SCH (09:46)
[2022-11-19] MEDS: ISOSORBIDE DINITRATE 10 MG TABLET PO SCH (09:46)
[2022-11-19] MEDS: METOPROLOL SUCCINATE XL 25 MG TAB.SR.24H PO SCH (09:46)
[2022-11-19] MEDS: FERROUS SULFATE 325 MG TABEC PO SCH (09:47)
[2022-11-19] MEDS: FOLIC ACID 1 MG TABLET PO SCH (09:49)
[2022-11-19] MEDS ORDERED: QUETIAPINE FUMARATE 25 MG TABLET PO SCH ×2 (10:00→21:00)
--- NOTE | 2022-11-19 11:02 | NUR ---
patient has no diarrhea, and has formed bm
[2022-11-19 11:47] VITALS: BP 133/65
--- NOTE | 2022-11-19 12:00 | NUR ---
patient is sitting at edge of bed, quietly, calmly, and eating her lunch herself. no distress, no agitated, aggressive behavior noted at this time.
--- NOTE | 2022-11-19 13:00 | NUR ---
patient is in bed, quite, calm, no combative, or aggressive behavior noted, safety precautions are in place.
[2022-11-19 13:30] VITALS: BP 116/60
--- NOTE | 2022-11-19 13:30 | NUR ---
Patient found in laying position next to her bed, on her left side. assessment performed, alert to her baseline, no sob, respirations are even nonlabored, skin warm and dry to touch, able to move all her extremities without any limitations and denied any pain during ROM. patient is able to ambulate with supervision without limitations, no clinical indication noted for any injury at this time. patient assisted to bed, no raised areas noted on her head. no skin issues noted from fall. safety precautions are in place. MD made aware. Addendum: 11/19/22 at 1527 by JOANNE MOORE RN, RN Patient has poor safety awareness due to cognitive deficits. reinforced safety instructions. continue to monitor closely.
[2022-11-19] MEDS ORDERED: QUET25TA36 PO ×2 (13:49)
[2022-11-19] MEDS ORDERED: OLAN10VI IM (13:49)
[2022-11-19 16:30] VITALS: BP 106/59
--- NOTE | 2022-11-19 18:38 | NUR ---
patient discharged to [facility], patient ate her dinner, no distress noted, ambulated to the bathroom with contact quard to the bathroom. no skin issues, no IV access removed, ID removed, stable condition, belongings are accounted and signed sent with patient, patient had her yellow color bracelets on her left arm. no agitation noted, no aggressive behavior noted. alert to her baseline.
[2022-11-19] MEDS ORDERED: NORTRIPTYLINE HCL 10 MG CAPSULE PO SCH (21:00)
== END 2022-11-19 18:30 | DRG 371 ==
LOC: ER 19:07 → TELE3 11-10 00:06 → TELE 11-12 07:34 → TELE3 11-14 08:34 → MEDSURG3 11-15 22:59
PROVIDERS: ADMIT Internal Medicine; ATTEND Internal Medicine
PROC: 05H633Z Insertion of Infusion Device into Left Subclavian Vein, Percutaneous Approach (ICD-10-PCS; principal; 2022-11-16)
PROC: B547ZZA Ultrasonography of Left Subclavian Vein, Guidance (ICD-10-PCS; 2022-11-16)
DX: A04.72 Enterocolitis due to Clostridium difficile, not specified as recurrent (principal); G93.41 Metabolic encephalopathy; R65.11 Systemic inflammatory response syndrome (SIRS) of non-infectious origin with acute organ dysfunction; J69.0 Pneumonitis due to inhalation of food and vomit; N39.0 Urinary tract infection, site not specified; I31.39 Other pericardial effusion (noninflammatory); D68.69 Other thrombophilia; M48.56XA Collapsed vertebra, not elsewhere classified, lumbar region, initial encounter for fracture; E11.65 Type 2 diabetes mellitus with hyperglycemia; B96.1 Klebsiella pneumoniae [K. pneumoniae] as the cause of diseases classified elsewhere; D50.9 Iron deficiency anemia, unspecified; Z79.4 Long term (current) use of insulin; E78.5 Hyperlipidemia, unspecified; Z86.73 Personal history of transient ischemic attack (TIA), and cerebral infarction without residual deficits; E86.0 Dehydration; Z74.09 Other reduced mobility; K21.9 Gastro-esophageal reflux disease without esophagitis; E87.6 Hypokalemia; F01.50 Vascular dementia, unspecified severity, without behavioral disturbance, psychotic disturbance, mood disturbance, and anxiety; Z88.0 Allergy status to penicillin; Z20.822 Contact with and (suspected) exposure to COVID-19; M50.30 Other cervical disc degeneration, unspecified cervical region; B96.89 Other specified bacterial agents as the cause of diseases classified elsewhere; F29 Unspecified psychosis not due to a substance or known physiological condition; I25.10 Atherosclerotic heart disease of native coronary artery without angina pectoris; J45.909 Unspecified asthma, uncomplicated; I11.0 Hypertensive heart disease with heart failure; I50.9 Heart failure, unspecified; R90.89 Other abnormal findings on diagnostic imaging of central nervous system
CPT/HCPCS: 36415; 70030-TC; 70450; 70551; 71045; 71250; 72125; 73020; 73060; 83735; 84100; 84443; 84484; 85025; 93005; A4663; A6209; A6213; C1758; G0378; G0480; J1815; J2060; J2185; J2358; J3370